=== PATIENT | female | born 1965 | race Caucasian/White ===

== ENCOUNTER 2018-03-04 16:11 | Emergency (ER) | payer OTHER ==
--- OUTSIDE RECORDS SUMMARY | 2018-03-04 16:15 | XMS REPORT ---
:1965 Author Organization eClinicalWorks Care Team Providers Name Role Phone Vivian Ayala Provider Role Unavailable Allergies No Known Allergies Problems Problem Type Condition Code Onset Dates Condition Status Problem H/O abnormal cells from cervix Z87.898 Active Problem Cystocele, midline N81.11 Active Problem Abnormality of left breast on R92.8 Active screening mammogram Assessment Abnormality of left breast on R92.8 Active screening mammogram Problem BMI 38.0-38.9,adult Z68.38 Active Medications No Known Medications Results No Known Results Summary Purpose eClinicalWorks Submission
--- OUTSIDE RECORDS SUMMARY | 2018-03-04 16:15 | XMS REPORT ---
:1965 Author Organization [employer] Care Team Providers Name Role Phone Vivian Ayala Provider Role Unavailable Allergies, Adverse Reactions, Alerts Substance Reaction Event Type Percocet Info Not Available Drug Allergy Problems Problem Type Condition Code Onset Dates Condition Status Assessment BMI 38.0-38.9,adult Z68.38 Active Problem BMI 38.0-38.9,adult Z68.38 Active Problem H/O abnormal cells from cervix Z87.898 Active Problem Cystocele, midline N81.11 Active Assessment H/O abnormal cells from cervix Z87.898 Active Assessment Cystocele, midline N81.11 Active Assessment Women's annual routine Z01.419 Active gynecological examination Assessment Encounter for screening mammogram Z12.31 Active for malignant neoplasm of breast Medications Medication Code System Code Instructions Start Date End Date Status Dosage Omeprazole NDC 0 Active not defined Montelukast NDC 56481-133 Active not defined Sodium 7-19 Results No Known Results Summary Purpose eClinicalWorks Submission
--- OUTSIDE RECORDS SUMMARY | 2018-03-04 16:15 | XMS REPORT ---
:1965 Author Organization eClinicalWorks Care Team Providers Name Role Phone Jhonny Hernandez Provider Role Unavailable Allergies No Known Allergies [...]
[2018-03-04] MEDS ORDERED: ONDANSETRON 4 MG (ODT) TAB ONE (17:00)
[2018-03-04] MEDS ORDERED: DEXAMETHASONE 4 MG/ML VIAL ONE (17:06)
[2018-03-04] MEDS ORDERED: PROMETHAZINE HCL 50 MG/ML AMP IM ONE (17:06)
--- NOTE | 2018-03-04 18:10 | ER ---
Nurse's Notes [facility] Name: Farhana Fountain Age: 52 yrs Sex: Female : 1965 Arrival Date: 03/04/2018 Time: 16:14 Bed 17 Private MD: Diagnosis: Otitis media, unspecified, bilateral;Vomiting, unspecified Presentation: 03/04 16:17 Presenting complaint: Patient states: sinus symptoms for a few weeks, ear pain since la1 , cant hold down the abx due to nausea and vomiting. Transition of care: patient was not received from another setting of care. Onset of symptoms was March 04, 2018. Risk Assessment: Do you want to hurt yourself or someone else? Patient reports no desire to harm self or others. Initial Sepsis Screen: Does the patient meet any 2 criteria? No. Patient's initial sepsis screen is negative. Does the patient have a suspected source of infection? No. Patient's initial sepsis screen is negative. Care prior to arrival: None. 16:17 Method Of Arrival: Ambulatory la1 16:17 Acuity: ANNMARIE 3 la1 Historical: - Allergies: 16:19 opioids make me nauseaous; la1 - PMHx: 16:19 GERD; la1 - PSHx: 16:19 Cholecystectomy; Knee surgery; la1 - Immunization history:: Adult Immunizations up to date. - Social history:: Smoking status: Patient/guardian denies using tobacco. - Ebola Screening: : No symptoms or risks identified at this time. Screenin:42 Abuse screen: Denies threats or abuse. Nutritional screening: No deficits noted. em Tuberculosis screening: No symptoms or risk factors identified. Fall Risk None identified. Assessment: 16:30 General: Appears in no apparent distress. uncomfortable, Behavior is calm, cooperative. em Pain: Complains of pain in head Pain currently is 7 out of 10 on a pain scale. Neuro: Level of Consciousness is awake, alert, obeys commands, Oriented to person, place, time, situation. Neuro: Reports headache. Cardiovascular: Capillary refill < 3 seconds Patient's skin is warm and dry. Respiratory: Airway is patent Respiratory effort is even, unlabored, Respiratory pattern is regular, symmetrical, Breath sounds are clear bilaterally. GI: Abdomen is round non-distended, Reports nausea, vomiting. : No signs and/or symptoms were reported regarding the genitourinary system. EENT: Reports loraine. earache. Derm: Skin is intact, Skin is pink, warm \T\ dry. Musculoskeletal: Capillary refill < 3 seconds, Range of motion: intact in all extremities. 16:45 Reassessment: I agree with above assessment. la1 17:50 Reassessment: given juice with medication, tolerated juice well. em 18:00 Reassessment: Patient appears in no apparent distress at this time. Patient and/or em family updated on plan of care and expected duration. Pain level reassessed. Patient is alert, oriented x 3, equal unlabored respirations, skin warm/dry/pink. Vital Signs: 16:19 BP 141 / 90; Pulse 104; Resp 16; Temp 98.3; Pulse Ox 96% on R/A; Weight 99.79 kg; la1 Height 5 ft. 4 in. (162.56 cm); 18:00 BP 141 / 87; Pulse 99; Resp 19; Pulse Ox 98% on R/A; em 16:19 Body Mass Index 37.76 (99.79 kg, 162.56 cm) la1 ED Course: 16:14 Patient arrived in ED. as 16:18 Triage completed. la1 16:19 Arm band placed on left wrist. la1 16:32 Alec Myers LVN is Primary Nurse. em 16:38 Tabitha Lombardo FNP-C is PHCP. snw 16:38 Mike Keita MD is Attending Physician. snw 16:42 Patient has correct armband on for positive identification. Bed in low position. Call em light in reach. Side rails up X2. Adult w/ patient. 18:29 No provider procedures requiring assistance completed. Patient did not have IV access em during this emergency room visit. Administered Medications: 17:05 Drug: Zofran 4 mg Route: PO; em 17:51 Follow up: Response: No adverse reaction em 17:05 Drug: Phenergan 25 mg Route: IM; Site: right deltoid; em 17:52 Follow up: Response: No adverse reaction; Nausea is decreased em 17:25 Drug: Decadron - Dexamethasone 10 mg {Note: given in juice.} Route: IVP; Site: Other; em 17:53 Follow up: Response: No adverse reaction em Outcome: 18:09 Discharge ordered by MD. macario 18:29 Discharged to home ambulatory, with family. em 18:29 Condition: good 18:29 Discharge instructions given to patient, Instructed on discharge instructions, follow up and referral plans. medication usage, Demonstrated understanding of instructions, follow-up care, medications, Prescriptions given X 2. 18:30 Patient left the ED. em Signatures: Tabitha Lombardo, INVENTORY REPRESENTATIVE-C INVENTORY REPRESENTATIVE-Csnw Alec Myers, BROKE BEATER OPERATOR BROKE BEATER OPERATOR em Guerline Lee Lee, RN RN la1
--- NOTE | 2018-03-04 18:10 | EDPHYS ---
Physician Documentation [facility] Name: Farhana Fountain Age: 52 yrs Sex: Female : 1965 Arrival Date: 03/04/2018 Time: 16:14 Bed 17 Private MD: ED Physician Mike Keita HPI: 03/04 17:21 This 52 yrs old Female presents to ER via Ambulatory with complaints of Flu snw Symptoms, Ear Pain. 17:21 Onset: The symptoms/episode began/occurred suddenly, 4 day(s) ago, and became snw persistent. Associated signs and symptoms: Pertinent positives: vomiting. The patient has not experienced similar symptoms in the past. The patient has been recently seen by a physician: the patient's primary care provider, Dr. Mercy Zamora with similar presenting complaints, and apparently given a diagnosis of severe left OM, was given a prescription for pain medications, was given a prescription for antibiotics, was given a prescription for an antiemetic. Historical: - Allergies: 16:19 opioids make me nauseaous; la1 - PMHx: 16:19 GERD; la1 - PSHx: 16:19 Cholecystectomy; Knee surgery; la1 - Immunization history:: Adult Immunizations up to date. - Social history:: Smoking status: Patient/guardian denies using tobacco. - Ebola Screening: : No symptoms or risks identified at this time. ROS: 17:19 Constitutional: Negative for fever, chills, and weight loss, Eyes: Negative for injury, snw pain, redness, and discharge, ENT: Negative for injury and discharge, + ear pain, dx with OM last week, unable to hold abx or steroids down Neck: Negative for injury, pain, and swelling, Cardiovascular: Negative for chest pain, palpitations, and edema, Respiratory: Negative for shortness of breath, cough, wheezing, and pleuritic chest pain, Abdomen/GI: Negative for abdominal pain, diarrhea, and constipation, posititve for n/v Back: Negative for injury and pain, : Negative for injury, bleeding, discharge, and swelling, Skin: Negative for injury, rash, and discoloration, Neuro: Negative for headache, weakness, numbness, tingling, and seizure, Psych: Negative for depression, anxiety, suicide ideation, homicidal ideation, and hallucinations. 17:19 Abdomen/GI: Positive for nausea and vomiting. Exam: 17:18 Constitutional: This is a well developed, well nourished patient who is awake, alert, snw and in no acute distress. Head/Face: Normocephalic, atraumatic. Eyes: Pupils equal round and reactive to light, extra-ocular motions intact. Lids and lashes normal. Conjunctiva and sclera are non-icteric and not injected. Cornea within normal limits. Periorbital areas with no swelling, redness, or edema. Neck: Trachea midline, no thyromegaly or masses palpated, and no cervical lymphadenopathy. Supple, full range of motion without nuchal rigidity, or vertebral point tenderness. No Meningismus. Chest/axilla: Normal chest wall appearance and motion. Nontender with no deformity. No lesions are appreciated. Cardiovascular: Regular rate and rhythm with a normal S1 and S2. No gallops, murmurs, or rubs. Normal PMI, no JVD. No pulse deficits. Respiratory: Lungs have equal breath sounds bilaterally, clear to auscultation and percussion. No rales, rhonchi or wheezes noted. No increased work of breathing, no retractions or nasal flaring. Abdomen/GI: Soft, non-tender, with normal bowel sounds. No distension or tympany. No guarding or rebound. No evidence of tenderness throughout. Back: No spinal tenderness. No costovertebral tenderness. Full range of motion. Skin: Warm, dry with normal turgor. Normal color with no rashes, no lesions, and no evidence of cellulitis. MS/ Extremity: Pulses equal, no cyanosis. Neurovascular intact. Full, normal range of motion. Neuro: Awake and alert, GCS 15, oriented to person, place, time, and situation. Cranial nerves II-XII grossly intact. Motor strength 5/5 in all extremities. Sensory grossly intact. Cerebellar exam normal. Normal gait. Psych: Awake, alert, with orientation to person, place and time. Behavior, mood, and affect are within normal limits. 17:18 ENT: TM's: dullness, on the right, erythema, that is marked, on the left, Nose: is normal, Mouth: is normal, Posterior pharynx: is normal, Voice: is normal. Vital Signs: 16:19 BP 141 / 90; Pulse 104; Resp 16; Temp 98.3; Pulse Ox 96% on R/A; Weight 99.79 kg; la1 Height 5 ft. 4 in. (162.56 cm); 18:00 BP 141 / 87; Pulse 99; Resp 19; Pulse Ox 98% on R/A; em 16:19 Body Mass Index 37.76 (99.79 kg, 162.56 cm) la1 MDM: 16:46 Patient medically screened. snw 18:11 Data reviewed: vital signs, nurses notes. Data interpreted: Pulse oximetry: on room air snw is 96 %. Interpretation: acceptable. Counseling: I had a detailed discussion with the patient and/or guardian regarding: the historical points, exam findings, and any diagnostic results supporting the discharge/admit diagnosis, the need for outpatient follow up, to return to the emergency department if symptoms worsen or persist or if there are any questions or concerns that arise at home. Response to treatment: the patient's symptoms have markedly improved after treatment, and as a result, I will discharge patient. Special discussion: Based on the history and exam findings, there is no indication for further emergent testing or inpatient evaluation. I discussed with the patient/guardian the need to see the primary care provider for further evaluation of the symptoms. Administered Medications: 17:05 Drug: Zofran 4 mg Route: PO; em 17:51 Follow up: Response: No adverse reaction em 17:05 Drug: Phenergan 25 mg Route: IM; Site: right deltoid; em 17:52 Follow up: Response: No adverse reaction; Nausea is decreased em 17:25 Drug: Decadron - Dexamethasone 10 mg {Note: given in juice.} Route: IVP; Site: Other; em 17:53 Follow up: Response: No adverse reaction em Disposition: 18:36 Co-signature as Attending Physician, Mike Keita MD I agree with the assessment and kdr plan of care. Disposition: 03/04/18 18:09 Discharged to Home. Impression: Otitis media, unspecified, bilateral, Vomiting, unspecified. - Condition is Stable. - Discharge Instructions: Clear Liquid Diet, Adult, Otitis Media, Adult, Rehydration, Adult, Vomiting, Adult. - Prescriptions for Tramadol 50 mg Oral Tablet - take 1 tablet by ORAL route every 8 hours as needed; 12 tablet. Phenergan 25 mg Rectal Suppository - insert 1 suppository by RECTAL route every 6 hours As needed; 12 suppository. - Work release form, Medication Reconciliation Form, Thank You Letter, Antibiotic Education, Prescription Opioid Use form. - Follow up: Private Physician; When: 1 week; Reason: Recheck today's complaints, Continuance of care, Re-evaluation by your physician. Follow up: Emergency Department; When: As needed; Reason: Worsening of condition. Signatures: Mike Keita MD MD kdr Therrien, Shelly, LANDSCAPE ARCHITECTURE PROFESSOR-C LANDSCAPE ARCHITECTURE PROFESSOR-Lizw Alec Myers, ELECTRONIC NEWS GATHERING CAMERA PERSON ELECTRONIC NEWS GATHERING CAMERA PERSON em Zain Waters RN RN la1 Corrections: (The following items were deleted from the chart) 18:30 18:09 03/04/2018 18:09 Discharged to Home. Impression: Otitis media, unspecified, em bilateral; Vomiting, unspecified. Condition is Stable. Forms are Medication Reconciliation Form, Thank You Letter, Antibiotic Education, Prescription Opioid Use. Follow up: Private Physician; When: 1 week; Reason: Recheck today's complaints, Continuance of care, Re-evaluation by your physician. Follow up: Emergency Department; When: As needed; Reason: Worsening of condition. snw
== END 2018-03-04 18:30 | disposition home or self-care (01) ==
LOC: ER 16:11
DX: H66.93 Otitis media, unspecified, bilateral (principal); Z88.5 Allergy status to narcotic agent
CPT/HCPCS: 96372; 96374; 99283; J2550

== ENCOUNTER 2018-05-01 11:43 | Emergency (ER) | payer OTHER ==
--- OUTSIDE RECORDS SUMMARY | 2018-05-01 11:45 | XMS REPORT ---
[...] NDC 0 Active not defined Montelukast NDC 49458-151 Active not defined Sodium 7-19 Results No Known Results Summary Purpose eClinicalWorks Submission
[2018-05-01] MEDS ORDERED: METHYLPREDNISOLONE 125 MG INJ ONE (13:12)
[2018-05-01] MEDS ORDERED: LEVALBUTEROL 1.25 MG/3 ML NEB ONE (13:13)
--- NOTE | 2018-05-01 13:20 | RAD REPORT ---
EXAM DESCRIPTION: RAD - Chest Pa And Lat (2 Views) - 05/01/2018 1:12 pm CLINICAL HISTORY: Cough and congestion COMPARISON: None. TECHNIQUE: PA and lateral views of the chest were obtained. FINDINGS: The lungs are clear. Heart size is normal and central vasculature is within normal limit s. No pleural effusion or pneumothorax seen. No acute bony finding noted. No aortic abnormality. IMPRESSION: No acute cardiopulmonary process.
--- NOTE | 2018-05-01 14:38 | ER ---
Nurse's Notes [facility] Name: Farhana Fountain Age: 52 yrs Sex: Female : 1965 Arrival Date: 05/01/2018 Time: 11:45 Bed 30 Private MD: SABRINA HINES Diagnosis: Bronchitis, not specified as acute or chronic;Wheezing Presentation: 05/01 11:48 Presenting complaint: Patient states: i have a cough that started a week before hj Rolanda, i felt wheezing now and i feel tired; reports low grade fever; denies taking meds FIRST BEATER:. Transition of care: patient was not received from another setting of care. Onset of symptoms was May 01, 2018. Risk Assessment: Do you want to hurt yourself or someone else? Patient reports no desire to harm self or others. Initial Sepsis Screen: Does the patient meet any 2 criteria? No. Patient's initial sepsis screen is negative. Does the patient have a suspected source of infection? No. Patient's initial sepsis screen is negative. Care prior to arrival: None. 11:48 Method Of Arrival: Ambulatory 11:48 Acuity: ANNMARIE 3 Triage Assessment: 11:51 General: Appears in no apparent distress. comfortable, Behavior is calm, cooperative, hj appropriate for age. Pain: Denies pain. 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 - Social history:: Smoking status: Patient/guardian denies using tobacco, Patient/guardian denies using alcohol. - Ebola Screening: : Patient negative for fever greater than or equal to 101.5 degrees Fahrenheit, and additional compatible Ebola Virus Disease symptoms Patient denies exposure to infectious person Patient denies travel to an Ebola-affected area in the 21 days before illness onset. - Family history:: not pertinent. - Hospitalizations: : No recent hospitalization is reported. Screenin:51 Abuse screen: Denies threats or abuse. Denies injuries from another. Nutritional hj screening: No deficits noted. Tuberculosis screening: No symptoms or risk factors identified. Fall Risk None identified. Assessment: 13:00 General: Appears in no apparent distress. well groomed, well developed, well nourished. tl3 Pain: Denies pain. Neuro: Level of Consciousness is awake. Cardiovascular: Patient's skin is warm and dry. Respiratory: Airway is patent Respiratory effort is even, unlabored, Respiratory pattern is regular, symmetrical. Respiratory: Reports cough that is hacking, persistent. GI: No deficits noted. No signs and/or symptoms were reported involving the gastrointestinal system. : No deficits noted. No signs and/or symptoms were reported regarding the genitourinary system. EENT:. 14:16 Reassessment: No changes from previously documented assessment. Patient and/or family tl3 updated on plan of care and expected duration. Pain level reassessed. Patient is alert, oriented x 3, equal unlabored respirations, skin warm/dry/pink. no needs at this time. 15:51 Reassessment: Patient appears in no apparent distress at this time. No changes from tl3 previously documented assessment. Patient and/or family updated on plan of care and expected duration. Pain level reassessed. Patient is alert, oriented x 3, equal unlabored respirations, skin warm/dry/pink. pt has no needs at this time. Vital Signs: 11:52 BP 127 / 86; Pulse 102; Resp 18; Temp 98.8(TE); Pulse Ox 95% on R/A; Weight 97.52 kg; hj Height 5 ft. 4 in. (162.56 cm); Pain 0/10; 14:15 BP 130 / 92; Pulse 94; Resp 18; Pulse Ox 98% on R/A; tl3 15:51 BP 128 / 84; Pulse 96; Resp 18; Pulse Ox 98% on R/A; tl3 11:52 Body Mass Index 36.90 (97.52 kg, 162.56 cm) ED Course: 11:45 Patient arrived in ED. rg4 11:46 SABRINA HINES is Private Physician. rg4 11:50 Triage completed. hj 11:51 Arm band placed on left wrist. hj 11:53 Patient has correct armband on for positive identification. Placed in gown. Bed in low hj position. Call light in reach. Side rails up X 1. 12:52 Keita, Yordan, MD is Attending Physician. rn 12:59 Kirstie Fraser, RN is Primary Nurse. tl3 13:00 Patient moved to radiology via wheelchair. jb2 13:00 No provider procedures requiring assistance completed. Patient did not have IV access tl3 during this emergency room visit. 13:04 X-ray completed. Patient tolerated procedure well. jb2 13:05 Patient moved back from radiology. jb2 13:05 XRAY Chest Pa And Lat (2 Views) In Process Unspecified. EDMS Administered Medications: 13:05 Drug: Xopenex (3) 1.25 mg Route: Inhalation; tl3 14:14 Follow up: Response: No adverse reaction tl3 13:43 Drug: SOLU-Medrol 125 mg Route: IM; Site: left gluteus; tl3 14:14 Follow up: Response: No adverse reaction tl3 Outcome: 14:38 Discharge ordered by MD. rn 15:51 Discharged to home ambulatory. tl3 15:51 Condition: stable 15:51 Discharge instructions given to patient, family, Instructed on discharge instructions, follow up and referral plans. medication usage, demonstrated proper inhaler usage, pt verbalized understanding 15:53 Patient left the ED. tl3 Signatures: Dispatcher [employer] EDMS Kathecollin Efren jb2 Yordan Keita MD MD rn Joaquin, Henry, RN RN hj Garcia, Rubi 4 Kirstie Fraser, RN RN tl3 Corrections: (The following items were deleted from the chart) 11:53 11:52 Pulse 102bpm; Resp 18bpm; Pulse Ox 95% RA; Temp 98.8F Temporal; 97.52 kg; Height hj 5 ft. 4 in.; BMI: 36.9; Pain 0/10; hj
--- NOTE | 2018-05-01 14:38 | EDPHYS ---
Physician Documentation [facility] Name: Farhana Fountain Age: 52 yrs Sex: Female : 1965 Arrival Date: 05/01/2018 Time: 11:45 Bed 30 Private MD: SABRINA HINES ED Physician Yordan Keita HPI: 05/01 12:59 This 52 yrs old Female presents to ER via Ambulatory with complaints of rn Cough, Wheezing. 12:59 The patient or guardian reports cough, difficulty breathing. Onset: The rn symptoms/episode began/occurred 1 week(s) ago. Severity of symptoms: At their worst the symptoms were moderate, in the emergency department the symptoms are unchanged. Modifying factors: The symptoms are alleviated by nothing, the symptoms are aggravated by nothing. The patient has not experienced similar symptoms in the past. The patient has not recently seen a physician. Reports cough that began 1 week ago, was clear, but now yellow with wheezing, non-smoker, no asthma. No fever. . 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 - Social history:: Smoking status: Patient/guardian denies using tobacco, Patient/guardian denies using alcohol. - Ebola Screening: : Patient negative for fever greater than or equal to 101.5 degrees Fahrenheit, and additional compatible Ebola Virus Disease symptoms Patient denies exposure to infectious person Patient denies travel to an Ebola-affected area in the 21 days before illness onset. - Family history:: not pertinent. - Hospitalizations: : No recent hospitalization is reported. ROS: 12:59 Constitutional: Negative for fever, chills, and weight loss, Eyes: Negative for injury, rn pain, redness, and discharge, Neck: Negative for injury, pain, and swelling, Cardiovascular: Negative for chest pain, palpitations, and edema, Respiratory: Negative for pleuritic chest pain Abdomen/GI: Negative for abdominal pain, nausea, vomiting, diarrhea, and constipation, MS/Extremity: Negative for injury and deformity, Skin: Negative for injury, rash, and discoloration, Neuro: Negative for headache, weakness, numbness, tingling, and seizure. Exam: 12:59 Constitutional: This is a well developed, well nourished patient who is awake, alert, rn and in no acute distress. Repeated coughing Eyes: Pupils equal round and reactive to light, extra-ocular motions intact. Lids and lashes normal. Conjunctiva and sclera are non-icteric and not injected. Cornea within normal limits. Periorbital areas with no swelling, redness, or edema. ENT: No stridor, MMM Cardiovascular: Regular rate and rhythm. No JVD. No pulse deficits. Respiratory: + diminished bilateral bases with faint central wheezing and crackles, no retractions Skin: Warm, dry with normal turgor. Normal color with no rashes, no lesions, and no evidence of cellulitis. MS/ Extremity: Pulses equal, no cyanosis. Neurovascular intact. Full, normal range of motion. Equal circumference. Neuro: Awake and alert, GCS 15, oriented to person, place, time, and situation. Cranial nerves II-XII grossly intact. Motor strength 5/5 in all extremities. Sensory grossly intact. Cerebellar exam normal. Normal gait. Vital Signs: 11:52 BP 127 / 86; Pulse 102; Resp 18; Temp 98.8(TE); Pulse Ox 95% on R/A; Weight 97.52 kg; hj Height 5 ft. 4 in. (162.56 cm); Pain 0/10; 14:15 BP 130 / 92; Pulse 94; Resp 18; Pulse Ox 98% on R/A; tl3 15:51 BP 128 / 84; Pulse 96; Resp 18; Pulse Ox 98% on R/A; tl3 11:52 Body Mass Index 36.90 (97.52 kg, 162.56 cm) MDM: 12:52 Patient medically screened. rn 14:36 Differential Diagnosis: Bronchitis Influenza Upper Respiratory Infection Viral Syndrome rn Pneumonia. Data reviewed: vital signs, nurses notes, lab test result(s), radiologic studies, plain films, and as a result, I will discharge patient. Counseling: I had a detailed discussion with the patient and/or guardian regarding: the historical points, exam findings, and any diagnostic results supporting the discharge/admit diagnosis, lab results, radiology results, the need for outpatient follow up, to return to the emergency department if symptoms worsen or persist or if there are any questions or concerns that arise at home. Response to treatment: the patient's symptoms have mildly improved after treatment, and as a result, I will discharge patient. Special discussion: I discussed with the patient/guardian in detail that at this point there is no indication for admission to the hospital. It is understood, however, that if the symptoms persist or worsen the patient needs to return immediately for re-evaluation. 05/01 12:59 Order name: Flu; Complete Time: 14:32 rn 05/01 12:33 Order name: XRAY Chest Pa And Lat (2 Views); Complete Time: 13:49 rn Administered Medications: 13:05 Drug: Xopenex (3) 1.25 mg Route: Inhalation; tl3 14:14 Follow up: Response: No adverse reaction tl3 13:43 Drug: SOLU-Medrol 125 mg Route: IM; Site: left gluteus; tl3 14:14 Follow up: Response: No adverse reaction tl3 Disposition: 05/01/18 14:38 Discharged to Home. Impression: Bronchitis, not specified as acute or chronic, Wheezing. - Condition is Stable. - Discharge Instructions: Acute Bronchitis, Adult, Cough, Adult. - Prescriptions for Prednisone 20 mg Oral Tablet - take 3 tablet by ORAL route once daily for 5 days; 15 tablet. Zithromax Z- Arnaldo 250 mg Oral Tablet - take 1 tablet by ORAL route as directed for 5 days Day 1 - take two (2) tablets one time. Day 2, 3, 4 , 5 take one (1) tablet once daily.; 6 tablet. Albuterol Sulfate 90 mcg/actuation - inhale 1-2 puff by INHALATION route every 4-6 hours; 1 Inhaler. - Medication Reconciliation Form, Thank You Letter, Antibiotic Education, Prescription Opioid Use form. - Follow up: Private Physician; When: As needed; Reason: Recheck today's complaints, Re-evaluation by your physician. - Problem is new. - Symptoms have improved. Signatures: Dispatcher [employer] EDMS Yordan Keita MD MD rn Joaquin, Henry, RN RN hj Lowrey, Tammy, RN RN tl3 Corrections: (The following items were deleted from the chart) 15:53 14:38 05/01/2018 14:38 Discharged to Home. Impression: Bronchitis, not specified as tl3 acute or chronic; Wheezing. Condition is Stable. Forms are Medication Reconciliation Form, Thank You Letter, Antibiotic Education, Prescription Opioid Use. Follow up: Private Physician; When: As needed; Reason: Recheck today's complaints, Re-evaluation by your physician. Problem is new. Symptoms have improved. rn
== END 2018-05-01 15:53 | disposition home or self-care (01) ==
LOC: ER 11:43
DX: J40 Bronchitis, not specified as acute or chronic (principal); K21.9 Gastro-esophageal reflux disease without esophagitis; Z88.8 Allergy status to other drugs, medicaments and biological substances
CPT/HCPCS: 71046; 87804; 96372; 99284; J2930